=== PATIENT | female | born 1960 | race Caucasian/White ===

== ENCOUNTER → 2017-10-28 | Outpatient (CLI) | payer BC | LOC: RAD 00:12 | DX: Z12.31 Encounter for screening mammogram for malignant neoplasm of breast (principal) ==

== ENCOUNTER → 2018-11-02 | Outpatient (CLI) | payer BC | LOC: RAD 02:36 | DX: Z12.31 Encounter for screening mammogram for malignant neoplasm of breast (principal) ==

== ENCOUNTER → 2019-03-21 | Outpatient (CLI) | payer BC ==
[~2019-03-21] VITALS: Ht 167.6 cm; Wt 113.4 kg
[~2019-03-21] MED LIST: IBUPROFEN 800800 M1 PO; MUCINEX1200 MG PO; PROAIR HFA8.5 GM INH
[2019-03-21 12:54] VITALS: BP 130/80
--- NOTE | 2019-03-21 13:20 | NUR ---
Pain Clinic Assessment: 1. History of Osteoarthritis: ANKLES History of Rheumatoid Arthritis: 2. Height: 5 ft. 6 in. 167.6 cm. Weight: 250.0 lb. oz. 113.400 kg. Patient's BMI: 40.4 3. Vital Signs: BP: 130/80 Pulse: 73 Resp: 18 Temp: 02 Sat: 98 ECG Mon: 4. Pain Intensity: 4 5. Fall Risk: Dizziness: Y Needs help standing or walking: N Fallen in the last 3 months: Y Fall risk comments: 6. Patient on Blood Thinner: None 7. History of Hypertension: Y 8. Opioid Therapy greater than 6 weeks: N Opiate Contract Signed: 9. Risk Assessment Tool Provided: MODERATE RISK 12/09 10. Functional Assessment Tool: 11. Recreational Drug Use: Never Drug Type: Tobacco Use: Never Smoker Tobacco Type: Amount or Packs/day: How Many Years: Alcohol Use: No Frequency: Quant:
--- NOTE | 2019-03-29 09:30 | HPC ---
[facility] [place] [address] PAIN MANAGEMENT CONSULTATION Name: LUIS QUILES [facility]: [facility] [id number] Admission: 03/21/19 ������������������ Attend Phys: Alexis Maravilla DO Discharge: ������������������ Date of : 62 Report #: [id number] THIS REPORT FOR: //name// CC: Kenny Gonzalez DPM DATE OF SERVICE: 03/21/2019 REFERRING PHYSICIAN: Mele Gonzalez DPM CHIEF COMPLAINT: Left foot pain. HISTORY OF PRESENT ILLNESS: As you know, the patient is a 58-year-old female with longstanding history of left foot pain. The patient indicates the pain began on 05/05/2018. The patient states she has undergone multiple neuroma incisions and lipoma incisions with Dr. Strong. This was done in 2018. The patient states that somewhere around May, her pain began to intensify. Pain is located around the lipoma incision on the left foot. The patient denies any unusual hair growth or nail growth on either the left or right side. She has no changes in skin color or texture. She denies temperature changes when comparing left lower extremity to right. She has been followed not only by Dr. Strong but has also sought evaluation with Podiatry, Dr. Mele Gonzalez who saw the patient in consultation and diagnosed with primary osteoarthritis of the right foot. The left foot has been evaluated and it is believed her symptoms may be related to a combination of mechanical and post-surgical nerve injury on that side. The patient has trialed topical agents, but these unfortunately have not been very effective. About 3 weeks ago, she sustained a fall with a twist of her left foot and she felt instantaneous increase in foot pain. She has sought no other consultations or evaluations after this fall. She has been referred to our service to discuss treatment for left foot pain. The patient indicates today pain is constant. She describes the pain as aching, crushing and tender. She places current pain score 4/10, daily average of 4-10/10, worst pain has been 10+/10. The patient states that getting off her feet exacerbate symptoms. Standing and adding pressure over the lateral aspect of the foot just around the incision improves pain. She has been referred to our service to discuss ongoing left foot pain. She comes to us without new imaging studies. She apparently had some x-ray imaging done at the [facility] though this is not available to us at this moment. PAST MEDICAL HISTORY: 1. Hypertension. 2. Chronic peptic ulcer disease. 3. Gastroesophageal reflux disease. 4. History of neuroma formation. [address] [address] PAIN MANAGEMENT CONSULTATION Name: LUIS QUILES Room #: REG [facility] KearaSaroj#: [id number] Admission: 03/21/19 ������������������ Attend Phys: Alexis Maravilla DO Discharge: ������������������ Date of : 62 Report #: [id number] 5. Lipoma formation. 6. Asthma. PAST SURGICAL HISTORY: Left foot surgery 11/2015, 12/2016, 01/2018. Right ankle surgery in 1980. section in 1988 and 1992, hysterectomy in 1993, sinus surgeries, multiple. SOCIAL HISTORY: The patient denies tobacco, alcohol, IV or illicit drug use. She is employed as an cyber security engineer. She is working, not receiving workmen's compensation or is trying to obtain disability benefits. She is not in litigation in regards to pain. She is unaccompanied at today's visit. REVIEW OF SYSTEMS: Positive for earaches with drainage, chronic sinus problems with rhinitis, nocturia, kidney stones, numbness and tingling sensations, asthma, lipoma formation. All other review of systems negative per 12-point review of systems other than those listed in history of present illness. Pain impact score 40/60 indicating severe interference of daily activities secondary to pain. ALLERGIES: SULFA MEDICATIONS, LATEX, AND ALEVE. CURRENT MEDICATIONS: Albuterol 2 puffs q. 4 hours p.r.n., ibuprofen 800 mg t.i.d., guaifenesin 1200 mg p.o. q.a.m. IMAGING: No imaging available. PHYSICAL EXAMINATION: VITAL SIGNS: Blood pressure 130/80, pulse 73, respiratory rate 18 and unlabored. The patient is 98% on room air. Height 5 feet 6 inches tall, weight 250 pounds and BMI calculated 40.4. GENERAL: Well-developed, well-nourished, well-hydrated, morbidly obese 58-year-old female appearing her stated age, pain is rated around 4/10. HEENT: Normocephalic, atraumatic. Pupils equal, round, reactive to light. Extraocular muscles are intact. Sclerae nonicteric without injection. NEUROLOGIC: Cranial nerves 2-12 grossly intact. Speech fluent. The patient deemed a good historian. LUNGS: Clear, no wheezes, rhonchi or rales. CARDIOVASCULAR: Regular. No appreciable gallop, no rub. ABDOMEN: Soft, obese, nontender, nondistended, normoactive bowel sounds. EXTREMITIES: Show no clubbing, no cyanosis, and no edema. MUSCULOSKELETAL: Lower extremity strength equal and symmetrical 5/5. She is intact to light touch from L1 through S2 dermatomes. Seated straight leg raising negative. Supine straight leg raising negative. KELECHI test is negative. Modified Gaenslen's positive for axial low back pain. Ankle clonus [facility] [address] [place] [address] PAIN MANAGEMENT CONSULTATION Name: LUIS QUILES Room #: REG [facility]#: [id number] Admission: 03/21/19 ������������������ Attend Phys: Alexis Maravilla DO Discharge: ������������������ Date of : 62 Report #: [id number] negative. Babinski is negative. The patient appears to have some tenderness to palpation over the preumbral area of the scar over the lateral aspect of the left foot. Painful range of motion of the talonavicular joint on the left. ASSESSMENT: 1. Peripheral neuropathy. 2. Dorsal cutaneous nerve neuropathy. 3. Chronic left foot pain. PLAN: 1. Based on today's physical exam and history the patient has provided, the description the patient uses in regards to pain as well as location of symptoms, likely source of the patient's pain is peripheral neuropathy involving the dorsal cutaneous distribution. I am unable to elicit any mechanical component of the patient's overall pain. There appears to be stability of the left foot. There are no concerning skin color changes, temperature changes, changes in nail texture or hair growth that would be concerning of complex regional pain syndrome. This does appear to be more related to cutaneous nerve injury given the descriptors the patient uses as well as the location of symptoms. We have discussed this with the patient today. We also discussed the treatment options available. The following was discussed with the patient. 2. We discussed that desensitization can be quite helpful. This can be done through a formalized training program or could be done at home. This would be easily something that could be done through initial training and done at home on a long-term basis. We discussed medication management either being topical with compounded creams, utilizing various compounded medications such as ketamine, baclofen, cyclobenzaprine, ketoprofen, gabapentin, and lidocaine. This would add analgesic benefit directly over the incision sites where the patient was experiencing pain. We discussed medications orally that could be utilized. These would include amitriptyline, nortriptyline, Cymbalta, Lyrica, or gabapentin. We discussed injections in and around the scar, understanding that this will provide some benefit, but likely no long-term treatment course. Ultimately, we discussed further imaging to determine if there is some underlying pathology as the patient does indicate the perception of movement in the area that is not "normal". After reviewing the risks and benefits of all the proposed treatment options, the patient chose to begin with topical agents and does wish to move forward with imaging. 3. The patient was provided a prescription of compounded cream utilizing ketamine 10%, baclofen 2%, cyclobenzaprine 2%, ketoprofen 10%, baclofen 6% and lidocaine 2%. I have given the patient 240 grams with 3 refills. She will apply topically up to 4 times a day as necessary to the affected area. Prescription was provided to the patient to fill at [facility], the compounding pharmacy in our area. 4. The patient has requested to undergo further imaging of the foot. 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 She was requesting an MRI of the left left [address] [address] PAIN MANAGEMENT CONSULTATION Name: LUIS UQILES Room #: REG [facility] Reyes#: [id number] Admission: 03/21/19 ������������������ Attend Phys: Alexis Maravilla DO Discharge: ������������������ Date of : 62 Report #: [id number] foot to be performed to determine if surgical options are necessary. We have written for the MRI, advising the patient that this may be difficult to obtain as there has not been a surgical consultation to date. Certainly, MRI could provide us more information and we will write for that to be done as quickly as possible. If authorizations are necessary, the patient may need to follow up with either Podiatry or her orthopedic foot surgeon for further assistance on the imaging process. The imaging is not necessary for our treatment plan, but may be necessary for further more aggressive treatment options. If authorizations are necessary, we will make an attempt at getting the authorization completed. If this is not successful, I have advised the patient to follow up with orthopedic foot surgeon for further evaluation. 5. We wish to thank Dr. Gonzalez for the referral of the patient to our clinic. We will keep you apprised of her response to treatment as we address what appears to be cutaneous nerve injury secondary to surgery. Again, we wish to thank you for the opportunity to see this patient in consultation. ��������������������������������������������� <ELECTRONICALLY SIGNED> ���������������������������������������� By: Alexis Maravilla DO ��������������������������������������������� 03/29/19 0930 [id number] Alexis Maravilla DO /nt
== END ==
LOC: PAIN 06:54
DX: M79.672 Pain in left foot (principal); I10 Essential (primary) hypertension; K21.9 Gastro-esophageal reflux disease without esophagitis; J45.909 Unspecified asthma, uncomplicated; G62.9 Polyneuropathy, unspecified; Z79.899 Other long term (current) drug therapy

== ENCOUNTER → 2020-03-28 | Outpatient (CLI) | payer BC | LOC: BC 10:23 | PROVIDERS: ATTEND Internal Medicine | DX: Z12.31 Encounter for screening mammogram for malignant neoplasm of breast (principal) ==